=== PATIENT | female | born 1965 | race Caucasian/White ===

== ENCOUNTER 2016-08-13 20:04 | Emergency (ER) | payer BC, SELFPAY ==
[~2016-08-13] VITALS: Ht 167.6 cm; Wt 84.1 kg
[2016-08-13 20:22] VITALS: BP 127/85
== END 2016-08-13 21:18 | disposition home or self-care (01) ==
LOC: ED 20:30
DX: J02.0 Streptococcal pharyngitis (principal)
CPT/HCPCS: 99283

== ENCOUNTER 2016-12-17 09:04 | Emergency (ER) | payer BC ==
[~2016-12-17] VITALS: Ht 167.6 cm; Wt 84.5 kg
[2016-12-17] MEDS ORDERED: LORazepam 1MG TABLET PO ONE (09:30)
[2016-12-17 09:42] LABS: HEMATOCRIT 52.6 % (34.6-47.8); HEMOGLOBIN 17.6 g/dL (11.7-16.4); WHITE BLOOD COUNT 10.9 x10^3/uL (3.4-10)
[2016-12-17 09:49] LABS: BLOOD UREA NITROGEN 14 mg/dL (7-18)
[2016-12-17 09:51] LABS: ACETAMINOPHEN < 2 mcg/mL (10-30)
[2016-12-17] MEDS ORDERED: LORazepam 1MG TABLET ONE (09:55)
[2016-12-17 10:15] LABS: DAU SCREEN DISCLAIMER
[2016-12-17 12:13] VITALS: BP 142/94
== END 2016-12-17 15:15 | disposition home or self-care (01) ==
LOC: ED 09:51
DX: F32.9 Major depressive disorder, single episode, unspecified (principal); F43.11 Post-traumatic stress disorder, acute
CPT/HCPCS: 36415; 80048; 80307; 80329; 82040; 85025; 99284; G0480